=== PATIENT | male | born 1960 | race Caucasian/White ===

== ENCOUNTER 2024-12-21 22:59 | Inpatient (IN) ==
[2024-12-21 23:50] LABS: Appearance Urine Clear (Clear); Bilirubin Urine Negative (Negative); Blood Urine Negative (Negative); Color Urine Yellow; Glucose Urine UA Negative (Negative); Ketones Urine Negative (Negative); Leukocyte Esterase Urine Negative (Negative); Nitrite Urine Negative (Negative); Protein Urine Negative (Negative); Specific Gravity Urine 1.012 (1.000-1.030); Urobilinogen Urine Negative (Negative)
[2024-12-21 23:52] LABS: Basophils # (auto) 0.05 K/uL (0.00-0.20); Basophils % (auto) 0.2 %; Hematocrit (blood only) 42.5 % (42.0-52.0); Hemoglobin 15.2 g/dl (14.0-18.0); Immature Granulocytes # (auto) 0.13 K/uL (0.01-0.20); Immature Granulocytes % (auto) 0.6 %; Lymphocytes # (auto) 1.92 K/uL (1.20-3.40); Lymphocytes % (auto) 9.3 %; Mean Corpuscular Hemoglobin 32.1 pg (25.0-34.0); Mean Corpuscular Hgb Conc 35.8 g/dL (32.0-36.0); Mean Corpuscular Volume 89.7 fL (80.0-100.0); Mean Platelet Volume 9.2 fL (9.4-12.4); Monocytes # (auto) 1.25 K/uL (0.11-0.59); Neutrophils # (auto) 17.39 K/uL (1.40-6.50); Neutrophils % (auto) 83.9 %; Platelet Count 195 K/uL (130-400); RDW Coefficient of Variation 13.2 % (11.5-14.5); RDW Standard Deviation 43.8 fL (36.4-46.3); Red Blood Count 4.74 M/uL (4.70-6.10); White Blood Count 20.74 K/ul (4.8-10.8)
[2024-12-22] LABS: Albumin Globulin Ratio 1.8 (0.9-2); Albumin Level 4.3 gm/dl (3.4-5.0); BUN Creatinine Ratio 19.8 (10-20); Calcium 9.2 mg/dl (8.6-10.3); Creatinine Clr Calc Pharmacy 109.5 ml/min; Globulin 2.4 gm/dl (2.5-4.0); Potassium 3.5 mmol/L (3.5-5.1); Total Protein 6.7 gm/dl (6.0-8.3)
[2024-12-22 00:22] LABS: D Dimer 2050 ug/L FEU (0-500)
[2024-12-22 00:37] LABS: Adenovirus PCR Not Detected (NotDetected); Bordetella parapertussis PCR Not Detected (NotDetected); Bordetella pertussis PCR Not Detected (NotDetected); Chlamydia pneumoniae PCR Not Detected (NotDetected); Coronavirus 229E PCR Not Detected (NotDetected); Coronavirus CoV-2 (COVID19)PCR Not Detected (NotDetected); Coronavirus HKU1 PCR Not Detected (NotDetected); Coronavirus NL63 PCR Not Detected (NotDetected); Coronavirus OC43PCR Not Detected (NotDetected); Human Metapneumovirus PCR Not Detected (NotDetected); Influenza A PCR Not Detected (NotDetected); Influenza B PCR Not Detected (NotDetected); Mycoplasma pneumoniae PCR Not Detected (NotDetected); Parainfluenza Virus 1 PCR Not Detected (NotDetected); Parainfluenza Virus 2 PCR Not Detected (NotDetected); Parainfluenza Virus 3 PCR Not Detected (NotDetected); Parainfluenza Virus 4 PCR Not Detected (NotDetected); Respiratory Syncytial VirusPCR Not Detected (NotDetected); Rhinovirus/Enterovirus PCR Not Detected (NotDetected)
[2024-12-22] MEDS: OPTIRAY 320 125ml IV ONE (00:48)
[2024-12-22 00:51] LABS: Magnesium 1.7 mg/dl (1.7-2.4)
--- NOTE | 2024-12-22 00:58 | Emergency Department Note ---
Impression & Plan Bilateral pneumonia, Hypoxia Admit to the [facility] ED Provider Note NAME: ISAAC LOCO AGE: 64 SEX: Male INFORMANT: Patient ED PROVIDER(S): Mell Chavez DO CHIEF COMPLAINT: Shortness of breath and chills PLAN: Disposition: admit to the [facility] MEDICAL DECISION MAKING: This is a 64-year-old male patient who presents to the emergency department with sudden onset of shortness of breath and chills around 5:30 PM this evening. He then began to develop diaphoresis and his noted that he was flushed. Patient states that he had significant shortness of breath walking up his stairs in his home which was concerning for him. Patient is a smoker. He has had intermittent coughing. He did travel by car home from [place] last week. Laboratory studies revealed negative upper respiratory bio fire testing. upon my evaluation of the patient, his O2 saturations on room air were in the 80s. He was placed on supplemental oxygen by nasal cannula. There was significant leukocytosis with a white count of 20.7. Troponin was negative. H&H was normal. D-dimer was 2050. Lactate and procalcitonin were negative. BNP was normal. Glucose was 123. Urinalysis was normal. Portable chest x-ray showed evidence of a bilateral pneumonia. Patient went for CTA to rule out PE. This was negative for clot but confirmed bilateral pneumonia. Patient Had been treated for IV cefepime out of concern for possible sepsis upon presentation. Patient remained hemodynamically stable. I discussed the case with the [facility] they will evaluate for further inpatient care. Care/management discussed with: career services manager and [facility] Triage Nursing notes: reviewed and agree with them. Vital Signs: reviewed and remarkable for hypoxia Additional History obtained from: patient's is at the bedside Chronic Medical/Social Conditions affecting care: tobacco abuse Differential Diagnosis: PE, pneumonia, sepsis, bronchitis Diagnostics, independently interpreted by me: ECG: Normal sinus rhythm at a rate of [address] segment elevation or signs of ischemia. There is no ectopy. QTc was 472 ms. Cardiac Monitoring: normal sinus rhythm at a rate of 98 Imaging studies: portable chest x-ray: Bilateral lower lobe opacities concerning for pneumonia as per my independent interpretation CTA chest: As per [facility] HPI: 64 year old Male arrives for evaluation of shortness of breath and chills that began suddenly around 5:30 PM this evening. Patient went on to develop significant diaphoresis and became flushed according to the patient's . Patient states that he became increasingly short of breath and was quite concerned when he attempted to walk up his stairs in his home and this was quite difficult for him. PAST MEDICAL HISTORY: See Below, SOCIAL HISTORY: Patient lives with his , he states that he has smoked cigarettes since the age of 12, They just returned from [place] where they spend the winter months HOME MEDICATIONS: See Below ALLERGIES: none VITALS: See Below PHYSICAL EXAMINATION: HEENT: Head - normocephalic and atraumatic. Pupils are equal, round, and reactive to light. Extraocular eye muscles are intact, and sclera are anicteric. Nose - moist nasal mucosa without discharge. Mouth - moist buccal mucosa. Oropharynx is nonerythematous and there is no tonsillar exudate or edema noted. Neck: Supple; no cervical of adenopathy or nuchal rigidity Heart: Regular rate and rhythm. There is a normal S1 and S2 with no murmurs, clicks, or gallops appreciated. Lungs: diminished breath sounds at both lung bases but no wheezing. Abdomen: Soft, completely nontender, nondistended, with good bowel sounds. There are no palpable pulsatile masses or hepatosplenomegaly. There is no guarding, rigidity, or rebound noted. Extremities: No evidence of cyanosis, clubbing, or edema. There are easily palpable peripheral pulses. Skin: warm and dry with good turgor and no rashes. Emergency Department treatment: patient monitor, supplemental oxygen by nasal cannula, IV cefepime Emergency Department course: The patient was evaluated in room B-8. A complete history and physical was performed. An order was placed for continuous cardiac monitoring. The patient was in a normal sinus rhythm at a rate of 98. O2 saturations were noted to be around 88% on room air. He was placed on 2 L of oxygen by nasal cannula which brought O2 saturations up to 93%. A septic protocol was performed as the patient describes having chills and sweats along with shortness of breath. A portable chest x-ray was performed. This was concerning for bilateral pneumonia. The patient was given a dose of IV cefepime. D-dimer was significantly positive. The patient went on to have a CT scan of the chest to rule out PE. This was negative for blood clot but remain concerning for pneumonia. I discussed the case with the [facility] Hospitalist and they will evaluate for further inpatient care as the patient remains hypoxic. I have personally spent greater than 30 minutes of critical care time in the direct management of this patient. This includes bedside care, interpretation of diagnostic studies, and testing, discussion with consultants, patient, and family members, and other required patient management activities. This 30 minutes is in excess of all separately billable procedures. Past Med/Surg History Problem List (Updated 12/23/24 @ 00:30 by Mell Chavez DO) Hypoxia (Acute) Bilateral pneumonia (Acute) Nicotine dependence Hypertension Prediabetes Acute hypoxic respiratory failure Atypical pneumonia Severe sepsis Social History Smoking Status: Current every day smoker Tobacco Type: Cigarettes Cigarettes Per Day: 1 pack; Do You Dip or Chew Tobacco: No; Hx Alcohol Use: Yes Hx Substance Use: No Preferred Language: Romanian Communication Ability: Effective Manager Mechanical Maintenance Required: No Beliefs That Will Affect Care: None Current Living Situation: Spouse Other Information That Helps Us Care for You: No Feels Safe at Home: Yes Safety Concerns: Feels Safe At This Time Allergies Allergies Allergy/AdvReac Type Severity Reaction Status Date / Time No Known Allergies Allergy Verified 12/22/24 01:10 Home Meds Home Medications Medication Instructions Recorded Confirmed Calcium Citrate + D 200 - 250 mg PO BID 12/22/24 12/22/24 Prostate Health 1 cap PO DAILY 12/22/24 12/22/24 Vitamin C 1,000 mg PO DAILY 12/22/24 12/22/24 Voltaren 2 g topical BID 12/22/24 12/22/24 aspirin 81 mg PO DAILY 12/22/24 12/22/24 atorvastatin 80 mg tablet 80 mg DAILY 12/22/24 12/22/24 celecoxib 200 mg capsule 200 mg PO DAILY 12/22/24 12/22/24 ginseng 100 mg PO BID 12/22/24 12/22/24 metoprolol succinate 25 mg 12.5 mg PO DAILY 12/22/24 12/22/24 tablet,extended release 24 hr omeprazole 20 mg PO BID 12/22/24 12/22/24 sildenafil 100 mg PO NOW 12/22/24 12/22/24 Results & Data (ED) Vital Signs Vital Signs - 24 hr 12/22/24 02:00 Pulse Rate 72 Respiratory Rate 20 Blood Pressure 112/65 Blood Pressure Mean 78 Pulse Oximetry 94 Oxygen Delivery Method Nasal Cannula Oxygen Flow Rate 2 Laboratory Data 12/22/24 03:05 12/22/24 03:05 Lab Results 12/21/24 12/21/24 12/21/24 Range/Units 23:08 23:09 23:12 WBC 20.74 H (4.8-10.8) K/ul RBC 4.74 (4.70-6.10) M/uL Hgb 15.2 (14.0-18.0) g/dl Hct 42.5 (42.0-52.0) % MCV 89.7 (80.0-100.0) fL MCH 32.1 (25.0-34.0) pg MCHC 35.8 (32.0-36.0) g/dL RDW Std Deviation 43.8 (36.4-46.3) fL RDW Coeff of Park 13.2 (11.5-14.5) % Plt Count 195 (130-400) K/uL MPV 9.2 L (9.4-12.4) fL Immature Gran % (Auto) 0.6 % Neut % (Auto) 83.9 % Lymph % (Auto) 9.3 % Frio % (Auto) 6.0 % Eos % (Auto) 0.0 % Baso % (Auto) 0.2 % Neut # (Auto) 17.39 H (1.40-6.50) K/uL Lymph # (Auto) 1.92 (1.20-3.40) K/uL Frio # (Auto) 1.25 H (0.11-0.59) K/uL Eos # (Auto) 0.00 (0.00-0.50) K/uL Baso # (Auto) 0.05 (0.00-0.20) K/uL Immature Gran # (Auto) 0.13 (0.01-0.20) K/uL D-Dimer 2050 H* (0-500) ug/L FEU Sodium 140 (136-145) mmol/L Potassium 3.5 (3.5-5.1) mmol/L Chloride 106 (98-107) mmol/L Carbon Dioxide 25 (21-32) mmol/L Anion Gap 9 (3-11) BUN 16 (6-23) mg/dl Creatinine 0.81 (0.6-1.4) mg/dl Est Cr Clr Drug Dosing 109.5 ml/min eGFR 97.85 BUN/Creatinine Ratio 19.8 (10-20) Glucose 123 H (70-99(Fasting)) mg/dl Lactate (0.4-2.0) mmol/L Calcium 9.2 (8.6-10.3) mg/dl Magnesium 1.7 (1.7-2.4) mg/dl Total Bilirubin 1.0 (0.2-1.0) mg/dl AST 24 (13-39) U/L ALT 21 (7-52) U/L Alkaline Phosphatase 69 (34-104) U/L Troponin I High Sens 6.4 (0-20) pg/ml B-Natriuretic Peptide (0-100) pg/ml Total Protein 6.7 (6.0-8.3) gm/dl Albumin 4.3 (3.4-5.0) gm/dl Globulin 2.4 L (2.5-4.0) gm/dl Albumin/Globulin Ratio 1.8 (0.9-2) Procalcitonin 0.04 (0-0.5) ng/ml Urine Color Yellow Urine Appearance Clear (Clear) Urine pH 7.0 (4.5-7.5) Ur Specific Wilson 1.012 (1.000-1.030) Urine Protein Negative (Negative) Urine Glucose (UA) Negative (Negative) Urine Ketones Negative (Negative) Urine Blood Negative (Negative) Urine Nitrite Negative (Negative) Urine Bilirubin Negative (Negative) Urine Urobilinogen Negative (Negative) Ur Leukocyte Esterase Negative (Negative) Adenovirus (PCR) Not Detected (NotDetected) B. pertussis DNA (PCR) Not Detected (NotDetected) B.parapertussis DNA PCR Not Detected (NotDetected) C. pneumoniae DNA (PCR) Not Detected (NotDetected) Coronavirus OC43 (PCR) Not Detected (NotDetected) Coronavirus HKU1 (PCR) Not Detected (NotDetected) Coronavirus 229E (PCR) Not Detected (NotDetected) SARS-CoV-2 (PCR) Not Detected (NotDetected) Coronavirus NL63 (PCR) Not Detected (NotDetected) Human Metapneumovir PCR Not Detected (NotDetected) Influenza Type A (PCR) Not Detected (NotDetected) Influenza Type B (PCR) Not Detected (NotDetected) M. pneumoniae (PCR) Not Detected (NotDetected) Parainfluenza 1 (PCR) Not Detected (NotDetected) Parainfluenza 2 (PCR) Not Detected (NotDetected) Parainfluenza 3 (PCR) Not Detected (NotDetected) Parainfluenza 4 (PCR) Not Detected (NotDetected) RSV (PCR) Not Detected (NotDetected) Entero/Rhino (PCR) Not Detected (NotDetected) 12/22/24 Range/Units 00:30 WBC (4.8-10.8) K/ul RBC (4.70-6.10) M/uL Hgb (14.0-18.0) g/dl Hct (42.0-52.0) % MCV (80.0-100.0) fL MCH (25.0-34.0) pg MCHC (32.0-36.0) g/dL RDW Std Deviation (36.4-46.3) fL RDW Coeff of Park (11.5-14.5) % Plt Count (130-400) K/uL MPV (9.4-12.4) fL Immature Gran % (Auto) % Neut % (Auto) % Lymph % (Auto) % Frio % (Auto) % Eos % (Auto) % Baso % (Auto) % Neut # (Auto) (1.40-6.50) K/uL Lymph # (Auto) (1.20-3.40) K/uL Frio # (Auto) (0.11-0.59) K/uL Eos # (Auto) (0.00-0.50) K/uL Baso # (Auto) (0.00-0.20) K/uL Immature Gran # (Auto) (0.01-0.20) K/uL D-Dimer (0-500) ug/L FEU Sodium (136-145) mmol/L Potassium (3.5-5.1) mmol/L Chloride (98-107) mmol/L Carbon Dioxide (21-32) mmol/L Anion Gap (3-11) BUN (6-23) mg/dl Creatinine (0.6-1.4) mg/dl Est Cr Clr Drug Dosing ml/min eGFR BUN/Creatinine Ratio (10-20) Glucose (70-99(Fasting)) mg/dl Lactate 1.6 (0.4-2.0) mmol/L Calcium (8.6-10.3) mg/dl Magnesium (1.7-2.4) mg/dl Total Bilirubin (0.2-1.0) mg/dl AST (13-39) U/L ALT (7-52) U/L Alkaline Phosphatase (34-104) U/L Troponin I High Sens (0-20) pg/ml B-Natriuretic Peptide 30 (0-100) pg/ml Total Protein (6.0-8.3) gm/dl Albumin (3.4-5.0) gm/dl Globulin (2.5-4.0) gm/dl Albumin/Globulin Ratio (0.9-2) Procalcitonin (0-0.5) ng/ml Urine Color Urine Appearance (Clear) Urine pH (4.5-7.5) Ur Specific Wilson (1.000-1.030) Urine Protein (Negative) Urine Glucose (UA) (Negative) Urine Ketones (Negative) Urine Blood (Negative) Urine Nitrite (Negative) Urine Bilirubin (Negative) Urine Urobilinogen (Negative) Ur Leukocyte Esterase (Negative) Adenovirus (PCR) (NotDetected) B. pertussis DNA (PCR) (NotDetected) B.parapertussis DNA PCR (NotDetected) C. pneumoniae DNA (PCR) (NotDetected) Coronavirus OC43 (PCR) (NotDetected) Coronavirus HKU1 (PCR) (NotDetected) Coronavirus 229E (PCR) (NotDetected) SARS-CoV-2 (PCR) (NotDetected) Coronavirus NL63 (PCR) (NotDetected) Human Metapneumovir PCR (NotDetected) Influenza Type A (PCR) (NotDetected) Influenza Type B (PCR) (NotDetected) M. pneumoniae (PCR) (NotDetected) Parainfluenza 1 (PCR) (NotDetected) Parainfluenza 2 (PCR) (NotDetected) Parainfluenza 3 (PCR) (NotDetected) Parainfluenza 4 (PCR) (NotDetected) RSV (PCR) (NotDetected) Entero/Rhino (PCR) (NotDetected) Administered Medications Albuterol (Albut/Ipratrop 3mg/0.5mg Neb 3 Ml Vial) 3 ml NEB QIDR [facility]; Protocol Stop: 01/21/25 18:59 Last Admin: 12/22/24 19:55 Dose: 3 ml Documented By: [id number] Ascorbic Acid (Ascorbic Acid 500 Mg Tab) 1,000 mg PO DAILY NAKITA Stop: 01/21/25 08:59 Last Admin: 12/22/24 08:16 Dose: 1,000 mg Documented By: JANIE Atorvastatin Calcium (Atorvastatin 40 Mg Tab) 80 mg PO DAILY NAKITA Stop: 01/21/25 08:59 Last Admin: 12/22/24 08:17 Dose: 80 mg Documented By: JANIE Diclofenac Sodium (Diclofenac Sod 1% Gel 100 Gm Tube) 2 gm EXT BID NAKITA Stop: 01/21/25 08:59 Last Admin: 12/22/24 20:25 Dose: Not Given Documented By: Admin: 12/22/24 08:17 Dose: Not Given Documented By: JANIE Doxycycline Hyclate (Doxycycline Hyclate 100 Mg Cap) 100 mg PO BID [facility] Stop: 12/27/24 20:59 Last Admin: 12/22/24 20:32 Dose: 100 mg Documented By: MAYUR Enoxaparin Sodium (Enoxaparin Inj 40 Mg/0.4 Ml Syr) 40 mg SQ QAM [facility] Stop: 01/21/25 08:59 Last Admin: 12/22/24 08:17 Dose: Not Given Documented By: JANIE Guaifenesin (Guaifenesin 600 Mg Tabcr) 1,200 mg PO Q12 NAKITA Stop: 01/21/25 20:59 Last Admin: 12/22/24 20:32 Dose: 1,200 mg Documented By: MAYUR Ceftriaxone Sodium (Rocephin) 2,000 mg in 50 mls @ 100 mls/hr IV Q24H NAKITA Stop: 12/27/24 08:59 Last Infusion: 12/22/24 09:44 Dose: Infused Documented By: Admin: 12/22/24 08:16 Dose: 100 mls/hr Documented By: JANIE Insulin Aspart (Insulin Aspart Per Unit Charge) 0 units SC ACHS NAKITA Stop: 01/21/25 04:08 Last Admin: 12/22/24 21:13 Dose: Not Given Documented By: MAYUR Co-signed By: ADNREW Admin: 12/22/24 18:05 Dose: Not Given Documented By: Admin: 12/22/24 12:30 Dose: Not Given Documented By: ENRIQUE Co-signed By: SMITA Admin: 12/22/24 05:12 Dose: Not Given Documented By: MARYAM Nicotine (Nicotine 14 Mg/24 Hr Patch) 1 patch TD QAM NAKITA Stop: 01/21/25 12:44 Last Admin: 12/22/24 18:05 Dose: Not Given Documented By: FRANCO Pantoprazole Sodium (Pantoprazole 40 Mg Tab) 40 mg PO BID [facility] Stop: 01/21/25 08:59 Last Admin: 12/22/24 20:32 Dose: 40 mg Documented By: Admin: 12/22/24 08:17 Dose: 40 mg Documented By: JANIE Discontinued Medications Albuterol (Albut/Ipratrop 3mg/0.5mg Neb 3 Ml Vial) 3 ml NEB QID [facility]AKITA; Protocol Stop: 01/21/25 12:59 Last Admin: 12/22/24 13:18 Dose: 3 ml Documented By: TRACEE Guaifenesin (Guaifenesin 600 Mg Tabcr) 600 mg PO ONE STA Stop: 12/22/24 03:30 Last Admin: 12/22/24 03:49 Dose: 600 mg Documented By: MARYAM Cefepime HCl (Maxipime 2000mg) 2,000 mg in 20 mls @ 5 mls/min IV NOW STA; Protocol Stop: 12/22/24 01:16 Last Admin: 12/22/24 01:21 Dose: 5 mls/min Documented By: QGV Magnesium Sulfate/Dextrose (Magnesium Sulfate / D5w) 1 gm in 100 mls @ 50 mls/hr IV ONE STA Stop: 12/22/24 04:18 Last Infusion: 12/22/24 06:10 Dose: Infused Documented By: Admin: 12/22/24 02:35 Dose: 50 mls/hr Documented By: QGV Potassium Chloride/Sodium Chloride (Normal Saline W/20 Meq Kcl) 20 meq in 1,000 mls @ 100 mls/hr IV .Q10H STA Stop: 12/22/24 12:18 Last Infusion: 12/22/24 13:45 Dose: Infused Documented By: Admin: 12/22/24 03:44 Dose: 100 mls/hr Documented By: MARYAM Doxycycline Hyclate 100 mg/ (Dextrose) 100 mls @ 50 mls/hr IV NOW STA Stop: 12/22/24 05:00 Last Infusion: 12/22/24 06:20 Dose: Infused Documented By: Admin: 12/22/24 04:18 Dose: 50 mls/hr Documented By: MARYAM Ioversol (Optiray 320 125ml) 89 ml IV ONCE ONE Stop: 12/22/24 00:49 Last Admin: 12/22/24 00:48 Dose: 89 ml Documented By: BELINDAW Discharge Plan Visit Data Chief Complaint: Shortness of Breath/Dyspnea Stated Complaint: SOB, Flu Like Symptoms ED Provider: Mell Chavez Discharge Problem: Bilateral pneumonia, Hypoxia Patient Disposition: Admitted As Inpatient Condition: Critical Discharge Instructions Interventions: ED Discharge Assessment Last Done: 12/22/24 04:09
[2024-12-22 00:59] LABS: Troponin I High Sensitivity 6.4 pg/ml (0-20)
[2024-12-22] MEDS: CEFEPIME 2000MG 2,000 MG/20 ML SYR IV STA (01:21)
--- NOTE | 2024-12-22 01:46 | CT Scan Report ---
EXAM: CT angio chest PE protocol CLINICAL HISTORY: PE TECHNIQUE: Contiguous axial images were obtained from the neck base through the upper abdomen following intravenous administration of iodinated contrast material. Angiographic images were processed, 3D MIP images were acquired for interpretation. If IV contrast material had not been administered, the likelihood of detecting abnormalities relevant to the patient's condition would have been substantially decreased. Coronal and sagittal 3-D MIPs were likewise performed and indicated to increase the sensitivity of detectin diffuse clinically relevant pathology. CT scan was performed according to ALARA (as low as reasonable achievable). COMPARISON: .. None. FINDINGS: Adequate contrast bolus without evidence of pulmonary embolism. The central airways are patent. Few areas of groung glassgin and subtle interlobular septla thickening noted in both lung bases The lungs are otherwise clear. No pleural effusion. The heart, aorta, and pulmonary arteries are of normal size and configuration. There are no appreciable coronary artery and aortic atherosclerotic calcifications. No pericardial effusion is identified. The thyroid is unremarkable. No mediastinal, hilar, or axillary lymphadenopathy is noted. No suspicious lytic or sclerotic osseous lesions are identified. IMPRESSION: No evidence of pulmonary embolism Few areas of groung glassgin and subtle interlobular septla thickening noted in both lung bases: could represent aspiration related changes or early interstitial lung disease. Advised clinical correlation. Electronically signed by Fidencio Carr 12-22-2024 01:46 AM
--- NOTE | 2024-12-22 02:16 | History & Physical Report ---
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 Lovenox subcu Full code Patient requesting updates providers. Ms. Abdiaziz Prado, contact #[phone]. Text document was generated using [employer] voice recognition software. It may contain grammatical or spelling errors. Kindly contact undersigned for clarification of any documentation item in ques tion. History of Present Illness Chief Complaint: Worsening SOB Primary Care Provider: Jesus Kingston MD History obtained from patient, family, and records. Medical history significant for nonocclusive CAD, hypertension, hyperlipidemia, Little's esophagus, DM2 diet-controlled, ongoing tobacco abuse. Few days history of progressive SOB worse on exertion associated with dry cough symptoms. Not sure about sick contacts. Outpatient doctor/dentist appointments. Denies aspiration. Denies chest pain, leg swelling or fluid retention. EMS called the patient's home. Neb treatment given en route to ER. Lowest O2 sats of 80s documented at the ER. Cefepime administered at the ER. Medical History as above Surgical History : None Family History : Heart disease Personal/Social history : 1 pack daily, occasional EtOH intake, retired Allergies Allergy/AdvReac Type Severity Reaction Status Date / Time No Known Allergies Allergy Verified 12/22/24 01:10 Home Medications Medication Instructions Recorded Confirmed Type Calcium Citrate + D 200 - 250 mg PO BID 12/22/24 12/22/24 History Prostate Health 1 cap PO DAILY 12/22/24 12/22/24 History Vitamin C 1,000 mg PO DAILY 12/22/24 12/22/24 History Voltaren 2 g topical BID 12/22/24 12/22/24 History aspirin 81 mg PO DAILY 12/22/24 12/22/24 History atorvastatin 80 mg tablet 80 mg DAILY 12/22/24 12/22/24 History celecoxib 200 mg capsule 200 mg PO DAILY 12/22/24 12/22/24 History ginseng 100 mg PO BID 12/22/24 12/22/24 History metoprolol succinate 25 mg 12.5 mg PO DAILY 12/22/24 12/22/24 History tablet,extended release 24 hr omeprazole 20 mg PO BID 12/22/24 12/22/24 History sildenafil 100 mg PO NOW 12/22/24 12/22/24 History Past Med/Surg History Problem List (Updated 12/22/24 @ 04:15 by Joe Zelaya MD) Severe sepsis Social History Smoking Status: Current every day smoker Preferred Language: Turkmen Feels Safe at Home: Yes Review of Systems Review of Systems: As per HPI, all other systems reviewed and negative Physical Exam Physical Exam: GENERAL: Comfortable, slightly anxious, pleasant, obese, no respiratory distress SKIN: [place], warm HEENT: Alopecia, [place] palpebral conjunctivae, no ptosis, dry buccal mucosa, nasal cannula in place NECK : Supple, no tenderness CHEST : Decreased breath sounds, no tenderness HEART : RRR, no obvious murmurs ABDOMEN: Some distention, nontender EXTREMITIES : No LE swelling/tenderness, palpable pulses, no other conspicuous deformities noted NEUROLOGIC : Coherent, no facial asymmetry, no other gross focality Results & Data Results & Data Vital Signs (Past 12 Hours) Vital Signs Temp Pulse Resp BP Pulse Ox O2 Del Method 12/21/24 23:36 89 L Room Air, Nasal Cannula 12/21/24 23:11 37 C 99 H 22 130/78 92 Room Air 12/21/24 23:11 Room Air 12/21/24 23:04 95 H Laboratory Results Laboratory Results WBC 20.74 K/ul (4.8-10.8) H 12/21/24 23:08 RBC 4.74 M/uL (4.70-6.10) 12/21/24 23:08 Hgb 15.2 g/dl (14.0-18.0) 12/21/24 23:08 Hct 42.5 % (42.0-52.0) 12/21/24 23:08 MCV 89.7 fL (80.0-100.0) 12/21/24 23:08 MCH 32.1 pg (25.0-34.0) 12/21/24 23:08 MCHC 35.8 g/dL (32.0-36.0) 12/21/24 23:08 RDW Std Deviation 43.8 fL (36.4-46.3) 12/21/24 23:08 RDW Coeff of [place] 13.2 % (11.5-14.5) 12/21/24 23:08 Plt Count 195 K/uL (130-400) 12/21/24 23:08 MPV 9.2 fL (9.4-12.4) L 12/21/24 23:08 Immature Gran % (Auto) 0.6 % 12/21/24 23:08 Neut % (Auto) 83.9 % 12/21/24 23:08 Lymph % (Auto) 9.3 % 12/21/24 23:08 [place] % (Auto) 6.0 % 12/21/24 23:08 Eos % (Auto) 0.0 % 12/21/24 23:08 Baso % (Auto) 0.2 % 12/21/24 23:08 Neut # (Auto) 17.39 K/uL (1.40-6.50) H 12/21/24 23:08 Lymph # (Auto) 1.92 K/uL (1.20-3.40) 12/21/24 23:08 [place] # (Auto) 1.25 K/uL (0.11-0.59) H 12/21/24 23:08 Eos # (Auto) 0.00 K/uL (0.00-0.50) 12/21/24 23:08 Baso # (Auto) 0.05 K/uL (0.00-0.20) 12/21/24 23:08 Immature Gran # (Auto) 0.13 K/uL (0.01-0.20) 12/21/24 23:08 D-Dimer 2050 ug/L FEU (0-500) H* 12/21/24 23:08 Sodium 140 mmol/L (136-145) 12/21/24 23:08 Potassium 3.5 mmol/L (3.5-5.1) 12/21/24 23:08 Chloride 106 mmol/L (98-107) 12/21/24 23:08 Carbon Dioxide 25 mmol/L (21-32) 12/21/24 23:08 Anion Gap 9 (3-11) 12/21/24 23:08 BUN 16 mg/dl (6-23) 12/21/24 23:08 Creatinine 0.81 mg/dl (0.6-1.4) 12/21/24 23:08 Est Cr Clr Drug Dosing 109.5 ml/min 12/21/24 23:08 eGFR 97.85 12/21/24 23:08 BUN/Creatinine Ratio 19.8 (10-20) 12/21/24 23:08 Glucose 123 mg/dl (70-99(Fasting)) H 12/21/24 23:08 Lactate 1.6 mmol/L (0.4-2.0) 12/22/24 00:30 Calcium 9.2 mg/dl (8.6-10.3) 12/21/24 23:08 Magnesium 1.7 mg/dl (1.7-2.4) 12/21/24 23:08 Total Bilirubin 1.0 mg/dl (0.2-1.0) 12/21/24 23:08 AST 24 U/L (13-39) 12/21/24 23:08 ALT 21 U/L (7-52) 12/21/24 23:08 Alkaline Phosphatase 69 U/L (34-104) 12/21/24 23:08 Troponin I High Sens 6.4 pg/ml (0-20) 12/21/24 23:08 B-Natriuretic Peptide 30 pg/ml (0-100) 12/22/24 00:30 Total Protein 6.7 gm/dl (6.0-8.3) 12/21/24 23:08 Albumin 4.3 gm/dl (3.4-5.0) 12/21/24 23:08 Globulin 2.4 gm/dl (2.5-4.0) L 12/21/24 23:08 Albumin/Globulin Ratio 1.8 (0.9-2) 12/21/24 23:08 Procalcitonin 0.04 ng/ml (0-0.5) 12/21/24 23:08 Urine Color Yellow 12/21/24 23:12 Urine Appearance Clear (Clear) 12/21/24 23:12 Urine pH 7.0 (4.5-7.5) 12/21/24 23:12 Ur Specific [place] 1.012 (1.000-1.030) 12/21/24 23:12 Urine Protein Negative (Negative) 12/21/24 23:12 Urine Glucose (UA) Negative (Negative) 12/21/24 23:12 Urine Ketones Negative (Negative) 12/21/24 23:12 Urine Blood Negative (Negative) 12/21/24 23:12 Urine Nitrite Negative (Negative) 12/21/24 23:12 Urine Bilirubin Negative (Negative) 12/21/24 23:12 Urine Urobilinogen Negative (Negative) 12/21/24 23:12 Ur Leukocyte Esterase Negative (Negative) 12/21/24 23:12 Adenovirus (PCR) Not Detected (NotDetected) 12/21/24 23:09 B. pertussis DNA (PCR) Not Detected (NotDetected) 12/21/24 23:09 B.parapertussis DNA PCR Not Detected (NotDetected) 12/21/24 23:09 C. pneumoniae DNA (PCR) Not Detected (NotDetected) 12/21/24 23:09 Coronavirus OC43 (PCR) Not Detected (NotDetected) 12/21/24 23:09 Coronavirus HKU1 (PCR) Not Detected (NotDetected) 12/21/24 23:09 Coronavirus 229E (PCR) Not Detected (NotDetected) 12/21/24 23:09 SARS-CoV-2 (PCR) Not Detected (NotDetected) 12/21/24 23:09 Coronavirus NL63 (PCR) Not Detected (NotDetected) 12/21/24 23:09 Human Metapneumovir PCR Not Detected (NotDetected) 12/21/24 23:09 Influenza Type A (PCR) Not Detected (NotDetected) 12/21/24 23:09 Influenza Type B (PCR) Not Detected (NotDetected) 12/21/24 23:09 M. pneumoniae (PCR) Not Detected (NotDetected) 12/21/24 23:09 Parainfluenza 1 (PCR) Not Detected (NotDetected) 12/21/24 23:09 Parainfluenza 2 (PCR) Not Detected (NotDetected) 12/21/24 23:09 Parainfluenza 3 (PCR) Not Detected (NotDetected) 12/21/24 23:09 Parainfluenza 4 (PCR) Not Detected (NotDetected) 12/21/24 23:09 RSV (PCR) Not Detected (NotDetected) 12/21/24 23:09 Entero/Rhino (PCR) Not Detected (NotDetected) 12/21/24 23:09 Impressions Chest CTA 12/22/24 00:28 EXAM: CT angio chest PE protocol CLINICAL HISTORY: PE TECHNIQUE: Contiguous axial images were obtained from the neck base through the upper abdomen following intravenous administration of iodinated contrast material. Angiographic images were processed, 3D MIP images were acquired for interpretation. If IV contrast material had not been administered, the likelihood of detecting abnormalities relevant to the patient's condition would have been substantially decreased. Coronal and sagittal 3-D MIPs were likewise performed and indicated to increase the sensitivity of detectin diffuse clinically relevant pathology. CT scan was performed according to ALARA (as low as reasonable achievable). COMPARISON: .. None. FINDINGS: Adequate contrast bolus without evidence of pulmonary embolism. The central airways are patent. Few areas of groung glassgin and subtle interlobular septla thickening noted in both lung bases The lungs are otherwise clear. No pleural effusion. The heart, aorta, and pulmonary arteries are of normal size and configuration. There are no appreciable coronary artery and aortic atherosclerotic calcifications. No pericardial effusion is identified. The thyroid is unremarkable. No mediastinal, hilar, or axillary lymphadenopathy is noted. No suspicious lytic or sclerotic osseous lesions are identified. IMPRESSION: No evidence of pulmonary embolism Few areas of groung glassgin and subtle interlobular septla thickening noted in both lung bases: could represent aspiration related changes or early interstitial lung disease. Advised clinical correlation. Electronically signed by Fidencio Carr 12-22-2024 01:46 AM Diagnostic Findings EKG as per my interpretation :Rate 95, NSR, RAD, incomplete RBBB, no ischemia
[2024-12-22] MEDS: MAGNESIUM SULFATE / D5W 1 GM/100 ML BAG IV STA (02:35)
[2024-12-22] MEDS ORDERED: BENZONATATE 100 MG CAPSULE PO PRN ×2 (03:02→12:37)
[2024-12-22] MEDS ORDERED: ALBUT/IPRATROP 3MG/0.5MG NEB 3 ML VIAL NEB PRN (03:02)
[2024-12-22] MEDS ORDERED: oxyCODONE HCL IR 5 MG TAB (IMMEDIATE RELEASE) PO PRN (03:03)
[2024-12-22] MEDS ORDERED: ACETAMINOPHEN 325 MG TAB PO PRN ×2 (03:03→12:37)
[2024-12-22] MEDS ORDERED: PROMETHAZINE 6.25 MG/50.25 ML BAG IV PRN (03:04)
[2024-12-22] MEDS ORDERED: LORazepam 0.5 MG TAB PO PRN (03:04)
[2024-12-22 03:24] LABS: Base Excess VBG 1.2 mEq/L; HCO3 VBG 26 mmol/L; Oxygen Saturation VBG 91.7 %; PCO2 VBG 41 mmHg (38-50); PO2 VBG 59 mmHg; pH VBG 7.41 (7.36-7.41)
[2024-12-22 03:28] LABS: Basophils # (auto) 0.05 K/uL (0.00-0.20); Basophils % (auto) 0.3 %; Eosinophils # (auto) 0.01 K/uL (0.00-0.50); Eosinophils % (auto) 0.1 %; Immature Granulocytes # (auto) 0.09 K/uL (0.01-0.20); Immature Granulocytes % (auto) 0.5 %; Lymphocytes # (auto) 2.15 K/uL (1.20-3.40); Lymphocytes % (auto) 11.3 %; Mean Corpuscular Hemoglobin 31.5 pg (25.0-34.0); Mean Corpuscular Volume 90.1 fL (80.0-100.0); Mean Platelet Volume 9.1 fL (9.4-12.4); Monocytes # (auto) 1.17 K/uL (0.11-0.59); Monocytes % (auto) 6.2 %; Neutrophils # (auto) 15.54 K/uL (1.40-6.50); Neutrophils % (auto) 81.6 %; Platelet Count 173 K/uL (130-400); RDW Coefficient of Variation 13.4 % (11.5-14.5); RDW Standard Deviation 43.8 fL (36.4-46.3); Red Blood Count 4.44 M/uL (4.70-6.10); White Blood Count 19.01 K/ul (4.8-10.8)
--- NOTE | 2024-12-22 03:28 | XRay Report ---
Exam(s): XR CXR 1 VIEW EXAM: XR Chest, 1 View CLINICAL HISTORY: Reason for exam: Dyspnea. TECHNIQUE: Frontal view of the chest. COMPARISON: No relevant prior studies available. FINDINGS: Lungs: Mild to moderate peribronchial thickening of the central and lower lobe bronchi with bilateral lower lobe patchy opacities. Pleural space: Unremarkable. No pneumothorax. Heart: Unremarkable. No cardiomegaly. Mediastinum: Unremarkable. Normal mediastinal contour. Bones/joints: Unremarkable. No acute fracture. IMPRESSION: Bronchitis with bilateral lower lobe infiltrates. Electronically signed by: Sara Mcgovern MD 12/22/24 03:27 AM
[2024-12-22 03:44] LABS: BUN Creatinine Ratio 20.8 (10-20); Calcium 8.7 mg/dl (8.6-10.3); Creatinine Clr Calc Pharmacy 123.2 ml/min; Potassium 3.7 mmol/L (3.5-5.1)
[2024-12-22] MEDS: NSS + 20MEQ KCL 20 MEQ/1,000 ML BAG IV STA (03:44)
[2024-12-22] MEDS: guaiFENesin 600 MG TABCR PO STA (03:49)
--- OUTSIDE RECORDS SUMMARY | 2024-12-22 04:02 | External Medical Summary | Summary of Care ---
Author Name Unknown Organization [facility] Address [address] [place] [address] Phone [phone] Care Team Providers Care Cane Furniture Maker Name Role Phone Jesus Kingston MD Primary Care Provider [phone] Reason for Visit * Reason Onset Date Comments Medication Refill 07/31/2024 Encounter Details Date Type Department Care Team (Late st Contact Info) Description 07/31/2024 Refill Family Practice [facility] [address] [place] [address] Jesus Kingston MD [address] [place] [address] Generalized osteoarthritis Allergies No known active allergiesdocumented as of this encounter (statuses as of 08/01/2024) Medications GINSENG 100 MG PO TABS 1 tablet twice daily Active CITRACAL PETITES/VITAMIN D 200-250 MG-UNIT PO TABS 1 tablet twice daily Active DEO MULTIVITAMIN FOR MEN PO TABS 1 tablet twice daily Active ASPIRIN 81 MG PO TABS 1 tablet daily Active CENTRUM SILVER ADULT 50+ PO TABS 1 daily Ac tive Ascorbic Acid (VITAMIN C) 1000 MG Tablet Take 1 Tablet by mouth in the morning. Active Misc Natural Products (GNP [employer] PROSTATE HEALTH) CAPS Take by mouth. Active Diclofenac Sodium 1 % External Gel (Voltaren) Apply 2 g topically to affected area in the morning and 2 g before bedtime. Apply to elbow. 100 g 3 3 Active Sildenafil Citrate 100 MG Oral Tablet (Viagra) Take 1 Tablet by mouth daily as needed for Erectile Dysfunction. 1-4 hours before intercourse, no more than 1 dose in 24 hours. 10 Tablet 5 4 Active Atorvastatin Calcium 80 MG Oral Tablet (Lipitor) Take 1 Tablet by mouth in the morning. 90 Tablet 1 4 Active Metoprolol Succinate ER 25 MG Oral Tablet Extended Release 24 Hour (toPROL XL) Take 0.5 Tablets by mouth in the morning. 45 Tablet 1 4 Active Omeprazole 20 MG Oral Capsule Delayed Release (PriLOSEC)Indicati ons:Little's esophagus without dysplasia Take 1 Capsule by mouth in the morning and 1 Capsule before bedtime. 180 Capsule 1 4 Active Celecoxib 200 MG Oral Capsule (CeleBREX)Indicati ons:Generalized osteoarthritis Take 1 Capsule by mouth in the morning. For pain. 90 Capsule 1 4 Active documented as of this encounter (statuses as of 08/01/2024) Active Problems Problem Noted Date Diagnosed Date SK (seborrheic keratosis) 05/16/2024 Organic erectile dysfunction 02/06/2023 Generalized osteoarthritis 02/06/2023 Obesity, Class I, BMI 30.0-34.9 (see actual BMI) 02/04/2023 Type 2 diabetes mellitus wit h hemoglobin A1c goal of less than 7.0% 05/10/2021 Dyslipidemia 12/31/2020 Tobacco use disorder 12/31/2020 Coronary artery disease invo lving [place] coronary artery without angina pectoris 10/14/2015 HTN, goal below 130/80 12/26/2012 Little esophagus 09/14/2012 Overview (10/14/2014): Needs endoscopy in 2018 documented as of this encounter (statuses as of 08/01/2024) Resolved Problems Problem Noted Date Diagnosed Date Resolved Date Prediabetes 10/03/2017 05/10/2021 Overview: Per Prediabetes protocol #1 Dyslipidemia, goal LDL below 70 04/11/2014 12/31/2020 CAD (coronary artery disease) 09/14/2012 10/14/2015 PURE HYPERCHOLESTEROLEM 01/26/200103/22 documented as of this encounter (statuses as of 08/01/2024) Immunizations Name Administration Dates Next Due Pneumococcal Conjugate Vacci ne, 20-valent ([id number]) 02/02/2022 Pneumococcal Polysaccharide PPV23 (Pneumovax) 05/10/2013 Seasonal Influenza Vac., MDV , IM, 0.5 mL (Fluzone) 05/02/2014,05/10/2013,07/05/2012 Seasonal Influenza, High Dos e, Trivalent, PF, IM (Fluzone HD) 05/06/2024 Seasonal Influenza, PF, 6 M & above, IM , (FluLaval or Fluzone) 05/18/2023,05/11/2021,05/20/2020,05/28,06/01/2018,06/16/2017 Seasonal Influenza, Quadriva lent, No Preserve, IM 06/23/2016,06/20/2015 TDAP (age 10 and older)(Boostrix) 07/05/2012 Zoster Vaccine Recombinant (Shingrix) 05/20/2020 ,01/27/2020 documented as of this encounter Social History Tobacco Use Types Packs/Day Years Used Date Smoking Tobacco: Every Day Cigarettes 1 40 Smokeless Tobacco: Never Comments:started age 13 Alcohol Use Standard Drinks/Week Comments Yes 0 (1 standard drink = 0.6 oz pur e alcohol) occ PHQ-2 Answer Date Recorded PHQ-2 Score 0 05/28/2019 Sex and Gender Information Value Date Recorded Sex Assigned at Not on file Legal Sex Male 5:22 AM EST Gender Identity Not on file Sexual Orientation Not on file documented as of this encounter Miscellaneous Notes * Telephone Encounter - Marla Lund [facility] - 08/01/2024 2:41 PM EST Refused Prescriptions: Disp Refills Celecoxib 200 MG Oral Capsule (CeleBREX) 90 Cap*1 Sig: Take 1 Capsule by mouth in the morning. For pain.Refused By: MARLA LUND for Refusal: Too soon documented in this encounter Plan of Treatment Upcoming Encounters Date Type Department Care Team (Late st Contact Info) Description 02/19/2025 8:00 AM EDT Office Visit [facility] [address] [place] [id number] Jesus Kingston MD [address] [place] [id number] Scheduled Procedures Name Priority Associated Diagnoses Date/Ti me COLONOSCOPY FLEXIBLE PROXIMAL DIAGNOSTIC Recall History of colon polyps ESOPHAGOGASTRODUODENOSCOPY ( EGD), FLEXIBLE, TRANSORAL, DIAGNOSTIC Recall Little esophagus Health Maintenance Due Date Last Done Comments DISCUSS TOBACCO CESSATION (REFER TO SMARTSET #0572) 1959 Diabetic Eye Exam 1977 Diabetic Foot Exam 1977 Cologuard 2004 Fecal Occult Blood Test 2004 Sigmoidoscopy 2004 Depression Screening 05/28/2020 05/28/2019 DTap/Tdap Vaccines (2 - Td or Tdap) 07/05/2022 07/05/2012 HbA1c 08/14/2024 02/13/2024, 12/19, 01/31/2022, Additional history exists Albumin/Creatinine Ratio 02/12/2025 024, 01/31/2022, 04/11/2014 GFR 02/12/2025 02/13/2024, 12/19, 01/31/2022, Additional history exists Little's Esophagus Surveilance 06/23/2025 06/23/2022, 06/23/2022, 01/18/2018, Additional history exists Colonoscopy 06/23/2027 06/23/2022, 10/2021, 01/18/2018, Additional history exists Colorectal Cancer Screening 06/23/2027 MENINGOCOCCAL (MENACTRA/MENVEO) Aged Out 07/12/2003, 01/25/1998, 08/31/1978 No longer eligible based on patient's age to complete this topic Lung Cancer Screening Completed 02/17/2020 Zoster Vaccines Completed 05/20/2020, 01/27/2020 Pneumococcal Vaccine: 65+ Years Completed 02/02/2022, 05/10/2013 RETIRED - COLONOSCOPY-EVERY 5 YRS AGES 18-100 Discontinued 06/23/2022, 06/23/2022, 01/18/2018, Additional history exists AAA Screening Completed 04/25/2024, 01/2009, 07/28/2003, Additional history exists Influenza Vaccine (FLU shot) Completed 05/06/2024, 05/18/2023, 05/11/2021, Additional history exists COVID-19 Vaccine Discontinued HPV (Gardasil) Vaccine Aged Out No lo nger eligible based on patient's age to complete this topic Hepatitis B Vaccine Aged Out No longe r eligible based on patient's age to complete this topic documented as of this encounter Medical Devices Not on filedocumented as of this encounter Visit Diagnoses Diagnosis Generalized osteoarthritis Generalized osteoarthrosis, unspecified site documented in this encounter Care Teams Cane Furniture Maker Relationship Specialty Start Date End Date Jesus Kingston MD [address] [place] [id number] PCP - General Family Medicine 12/31/20 documented as of this encounter
--- OUTSIDE RECORDS SUMMARY | 2024-12-22 04:02 | External Medical Summary | Summary of Care ---
Author Name Unknown Organization [facility] Address [address] [place] [address] Phone [phone] Care Team Providers Care Director Personal Name Role Phone Jesus Kingston MD Primary Care Provider [phone] Reason for Visit * Reason Onset Date Comments transfer of records 10/02/2024 Encounter Details Date Type Department Care Team (Late st Contact Info) Description 10/02/2024 Telephone Family Practice [facility] [address] [place] [address] Jesus Kingston MD [address] [facility] [place] [address] transfer of records Allergies No known active allergiesdocumented as of this encounter (statuses as of 10/03/2024) Medications GINSENG 100 MG PO TABS 1 [...] the morning. Active Misc Natural Products (GNP [employer] PROSTATE HEALTH) CAPS Take by mouth. Active [...] as of this encounter (statuses as of 10/03/2024) Active Problems Problem Noted Date Diagnosed Date SK (seborrheic keratosis) 05/16/2024 Organic erectile dysfunction 02/06/2023 Generalized osteoarthritis 02/06/2023 Obesity, Class I, BMI 30.0-34.9 (see actual BMI) 02/04/2023 Type 2 diabetes mellitus wit h hemoglobin A1c goal of less than 7.0% 05/10/2021 Dyslipidemia 12/31/2020 Tobacco use disorder 12/31/2020 Coronary artery disease invo lving [place] coronary artery without angina pectoris 10/14/2015 HTN, goal below 130/80 12/26/2012 Little esophagus 09/14/2012 Overview (10/14/2014): Needs endoscopy in 2018 documented as of this encounter (statuses as of 10/03/2024) Resolved Problems Problem Noted Date Diagnosed Date Resolved Date Prediabetes 10/03/2017 05/10/2021 Overview: Per Prediabetes protocol #1 Dyslipidemia, goal LDL below 70 04/11/2014 12/31/2020 CAD (coronary artery disease) 09/14/2012 10/14/2015 PURE HYPERCHOLESTEROLEM 01/26/200103/22 documented as of this encounter (statuses as of 10/03/2024) Immunizations Name Administration Dates Next Due Pneumococcal Conjugate Vacci ne, 20-valent ([id number]) 02/02/2022 Pneumococcal Polysaccharide PPV23 (Pneumovax) 05/10/2013 Seasonal [...] encounter Miscellaneous Notes * Telephone Encounter - Myrna Barroso OSA - 10/02/2024 2:50 PM EST Pt would like records sent to Anusha Saeed MD/Seda Wilson APRN for continued of care Thank you Forward to [facility] documented in this encounter Plan of Treatment Upcoming Encounters Date Type Department Care Team (Late st Contact Info) Description 02/19/2025 8:00 AM EDT Office Visit Family Practice [facility] [address] [place] [address] Jesus Kingston MD [address] [place] [phone] Scheduled Procedures Name Priority Associated Diagnoses Date/Ti me COLONOSCOPY FLEXIBLE PROXIMAL DIAGNOSTIC Recall History of colon polyps ESOPHAGOGASTRODUODENOSCOPY ( EGD), FLEXIBLE, TRANSORAL, DIAGNOSTIC Recall Little esophagus Health Maintenance Due Date Last Done Comments DISCUSS TOBACCO CESSATION (REFER TO SMARTSET #5290) 1959 Diabetic Eye Exam 1977 Diabetic Foot [...] Zoster Vaccines Completed 05/20/2020, 01/27/2020 Pneumococcal Vaccine: 50+ Years Completed 02/02/2022, 05/10/2013 RETIRED - COLONOSCOPY-EVERY 5 YRS AGES 18-100 Discontinued 06/23/2022, 06/23/2022, 01/18/2018, Additional history exists AAA Screening Completed 04/25/2024, 05/0 01/2009, 07/28/2003, Additional history exists Influenza Vaccine [...] Not on filedocumented as of this encounter Care Teams Director Personal Relationship Specialty Start Date End Date Jesus Kingston MD [address] [place] [phone] PCP - General Family Medicine 12/31/20 documented as of this encounter
--- OUTSIDE RECORDS SUMMARY | 2024-12-22 04:02 | External Medical Summary | Summary of Care ---
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 Active Misc Natural Products (GNP [employer] PROSTATE HEALTH) CAPS Take by mouth. Active [...] as of this encounter (statuses as of 10/08/2024) Active Problems Problem Noted Date Diagnosed Date SK (seborrheic keratosis) 05/16/2024 Organic erectile dysfunction 02/06/2023 Generalized osteoarthritis 02/06/2023 Obesity, Class I, BMI 30.0-34.9 (see actual BMI) 02/04/2023 Type 2 diabetes mellitus wit h hemoglobin A1c goal of less than 7.0% 05/10/2021 Dyslipidemia 12/31/2020 Tobacco use disorder 12/31/2020 Coronary artery disease invo lving [place] coronary artery without angina pectoris 10/14/2015 HTN, goal below 130/80 12/26/2012 Little esophagus 09/14/2012 Overview (10/14/2014): Needs endoscopy in 2018 documented as of this encounter (statuses as of 10/08/2024) Resolved Problems Problem Noted Date Diagnosed Date Resolved Date Prediabetes 10/03/2017 05/10/2021 Overview: Per Prediabetes protocol #1 Dyslipidemia, goal LDL below 70 04/11/2014 12/31/2020 CAD (coronary artery disease) 09/14/2012 10/14/2015 PURE HYPERCHOLESTEROLEM 01/26/200103/22 documented as of this encounter (statuses as of 10/08/2024) Immunizations Name Administration Dates Next Due Pneumococcal Conjugate Vacci ne, 20-valent ([id number]) 02/02/2022 Pneumococcal Polysaccharide PPV23 (Pneumovax) 05/10/2013 Seasonal [...] encounter Miscellaneous Notes * Telephone Encounter - Jonh Gallagher [facility] - 10/08/2024 3:42 PM ESTRefused Prescriptions: Disp Refills Omeprazole 20 MG Oral Capsule Delayed Rele*180 Ca*1 Sig: TAKE 1CAPSULE BY MOUTH IN THE MORNING AND 1 CAPSULE BY MOUTH BEFORE BEDTIMERefused By: JONH GALLAGHER for Refusal: Too soon * Telephone Encounter - Jonh Gallagher RP - 10/08/2024 3:42 PM EST Refills for omeprazole were approved to [facility] #[id number] [address] on 07/08/23 (90 days with 1 refill). Refill(s) should remain at the pharmacy. Thanks, Jonh Benjamin, PharmD Clinical Pharmacist [facility] [phone] 12/09/2022 12:43 PM * Telephone Encounter - Vida Friedman TECH - 10/08/2024 2:38 PM EST Pending Prescriptions: Disp Refills Omeprazole 20 MG Oral Capsule Delayed Rele*180 Ca*1 Sig: TAKE 1 CAPSULE BY MOUTH IN THE MORNING AND 1 CAPSULE BY MOUTH BEFORE BEDTIME * Telephone Encounter - Vida Friedman [facility] - 10/08/2024 2:37 PM EST Did you pend patient's preferred pharmacy and medication before forwarding?yes Pharmacy: [facility] #[id number] [address] Pending Prescriptions: Disp Refills Omeprazole 20 MG Oral Capsule Delayed Rel*180 Ca*1 Sig: TAKE 1 CAPSULE BY MOUTH IN THE MORNING AND 1 CAPSULE BY MOUTH BEFORE BEDTIME Last Visit: 05/16/2024 (in office), 01/01/2021 (telemedicine) Next Visit: 02/19/2025 If no future appointments scheduled, and last appointment is greater than a year ago, please schedule patient for a follow-up appointment Last date the medication was ordered: 07/08/24 Is this request for a controlled substance?No Urine Drug Screen:No results found for this or any previous visit. Patient Phone Numbers Labs: Lab Results Component Value Date/Time CREAT 0.8 02/13/2024 09:35 AM CREAT 0.9 05/22/2020 11:26 AM POTASSIUM 4.3 02/13/2024 09:35 AM POTASSIUM 4.5 05/22/2020 11:26 AM LDL 84 02/13/2024 09:35 AM LDL 92 05/22/2020 11:26 AM LDL NOT APPLICABLE 05/22/2020 11:26 AM ALT 29 01/06/2023 03:15 PM ALT 32 05/22/2020 11:26 AM HGBA1C 6.3 (H) 02/13/2024 09:35 AM HGBA1C 6.5 (H) 05/22/2020 11:26 AM documented in this encounter Plan of Treatment Upcoming Encounters Date Type Department Care Team (Late st Contact Info) Description 02/19/2025 8:00 AM EDT Office Visit Family Practice [facility] 132 [facility] [place] [address] Jesus Kingston MD 132 [facility] [place] [address] Scheduled Procedures Name Priority Associated Diagnoses Date/Ti me COLONOSCOPY FLEXIBLE PROXIMAL DIAGNOSTIC Recall History of colon polyps ESOPHAGOGASTRODUODENOSCOPY ( EGD), FLEXIBLE, TRANSORAL, DIAGNOSTIC Recall Little esophagus Health Maintenance Due Date Last Done Comments DISCUSS TOBACCO CESSATION (REFER TO SMARTSET #2445) 1959 Diabetic Eye Exam 1977 Diabetic Foot [...] on patient's age to complete this topic Meningitis B Vaccine (Bexsero/Trumemba) Aged Out No longer eligible based on patient's age to complete this topic documented as of this encounter Medical Devices Not on filedocumented as of this encounter Visit Diagnoses Diagnosis 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
--- OUTSIDE RECORDS SUMMARY | 2024-12-22 04:02 | External Medical Summary | Summary of Care ---
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 Active Misc Natural Products (GNP [employer] [facility]OSTATE [facility]) CAPS Take by mouth. Active Diclofenac Sodium 1 % External Gel (Voltaren) Apply 2 g topically to affected area in the morning and 2 g before bedtime. Apply to elbow. 100 g 3 03/20/20 23 Active Sildenafil Citrate 100 MG Oral Tablet (Viagra) Take 1 Tablet by mouth daily as needed for Erectile Dysfunction. 1-4 hours before intercourse, no more than 1 dose in 24 hours. 10 Tablet 5 02/19/20 24 Active Atorvastatin Calcium 80 MG Oral Tablet (Lipitor) Take 1 Tablet by mouth in the morning. 90 Tablet 1 07/08/20 24 Active Metoprolol Succinate ER 25 MG Oral Tablet Extended Release 24 Hour (toPROL XL) Take 0.5 Tablets by mouth in the morning. 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 180 Capsule 1 07/08/20 24 Active Celecoxib 200 MG Oral Capsule (CeleBREX)Indicati ons:Generalized osteoarthritis Take 1 Capsule by mouth in the morning. For pain. 90 Capsule 1 07/08/20 24 Active Atorvastatin Calcium 80 MG Oral Tablet (Lipitor) Take 1 Tablet by mouth in the morning. 90 Tablet 1 02/19/20 24 024 Discontin ued(Refil l) Metoprolol Succinate ER 25 MG Oral Tablet Extended Release 24 Hour (toPROL XL) Take 0.5 Tablets by mouth in the morning. 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 180 Capsule 1 04/07/20 24 024 Discontin ued(Refil l) Celecoxib 200 MG Oral Capsule (CeleBREX)Indicati ons:Generalized osteoarthritis Take 1 Capsule by mouth in the morning. For pain. 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 Overview (10/14/2014): Needs endoscopy in 2018 documented as of this encounter (statuses as of 07/08/2024) Resolved Problems Problem Noted Date Diagnosed Date Resolved Date Prediabetes 10/03/2017 05/10/2021 Overview: Per Prediabetes protocol #1 Dyslipidemia, goal LDL below 70 04/11/2014 12/31/2020 CAD (coronary artery disease) 09/14/2012 10/14/2015 PURE HYPERCHOLESTEROLEM 01/26/200103/22 documented as of this encounter (statuses as of 07/08/2024) Immunizations Name Administration Dates Next Due Pneumococcal Conjugate Vacci ne, 20-valent ([id number]) 02/02/2022 Pneumococcal Polysaccharide PPV23 (Pneumovax) 05/10/2013 Seasonal [...] encounter Miscellaneous Notes * Telephone Encounter - Татьяна Page MD - 07/08/2024 9:04 PM ESTSigned Prescriptions: Disp Refills Atorvastatin Calcium 80 MG Oral Tablet (Li*90 Tab*1 Sig: Take 1 Tablet by mouth in the morning. Authorizing Provider: ТАТЬЯНА PAGE Ordering User: CHRISTOPHER ALVARADO Metoprolol Succinate ER 25 MG Oral Tablet *45 Tab*1 Sig: Take 0.5 Tablets by mouth in the morning. Authorizing Provider: ТАТЬЯНА PAGE Ordering User: CHRISTOPHER ALVARADO Omeprazole 20 MG Oral Capsule Delayed Rele*180 Ca*1 Sig: Take 1 Capsule by mouth in the morning and 1 Capsule before bedtime. Authorizing Provider: ТАТЬЯНА PAGE Ordering User: CHRISTOPHER ALVARADO Celecoxib 200 MG Oral Capsule (CeleBREX) 90 Cap*1 Sig: Take 1 Capsule by mouth in the morning. For pain. Authorizing Provider: ТАТЬЯНА PAGE * Telephone Encounter - Christopher Alvarado, [facility] - 07/08/2024 4:46 PM ESTPending Prescriptions: Disp Refills Celecoxib 200 MG Oral Capsule (CeleBREX) 90 Cap*1 Sig: Take 1 Capsule by mouth in the morning. For pain. Signed Prescriptions: Disp Refills Atorvastatin Calcium 80 MG Oral Tablet (Li*90 Tab*1 Sig: Take 1 Tablet by mouth in the morning. Authorizing Provider: ТАТЬЯНА PAGE Ordering User: CHRISTOPHER ALVARADO Metoprolol Succinate ER 25 MG Oral Tablet *45 Tab*1 Sig: Take 0.5 Tablets by mouth in the morning. Authorizing Provider: ТАТЬЯНА PAGE Ordering User: CHRISTOPHER ALVARADO Omeprazole 20 MG Oral Capsule Delayed Rele*180 Ca*1 Sig: Take 1 Capsule by mouth in the morning and 1 Capsule before bedtime. Authorizing Provider: ТАТЬЯНА PAGE Ordering User: CHRISTOPHER ALVARADO - * Telephone Encounter - Christopher Alvarado RP - 07/08/2024 4:45 PM EST Unable to authorize medication refills at this time. Part of the criteria used for refill authorization was not satisfied. Patient needs current labs. Please approve if appropriate. Pending Prescriptions: Disp Refills Celecoxib 200 MG Oral Capsule (CeleBREX) 90 Cap*1 Sig: Take 1 Capsule by mouth in the morning. For pain. Signed Prescriptions: Disp Refills Atorvastatin Calcium 80 MG Oral Tablet (Li*90 Tab*1 Sig: Take 1 Tablet by mouth in the morning. Authorizing Provider: ТАТЬЯНА PAGE Ordering User: CHRISTOPHER ALVARADO Metoprolol Succinate ER 25 MG Oral Tablet *45 Tab*1 Sig: Take 0.5 Tablets by mouth in the morning. Authorizing Provider: ТАТЬЯНА PAGE Ordering User: CHRISTOPHER ALVARADO Omeprazole 20 MG Oral Capsule Delayed Rele*180 Ca*1 Sig: Take 1 Capsule by mouth in the morning and 1 Capsule before bedtime. Authorizing Provider: ТАТЬЯНА PAGE Ordering User: CHRISTOPHER ALVARADO Last Visit: 05/16/2024 (in office), 01/01/2021 (telemedicine) Next Visit: 02/19/2025 If no future appointments scheduled, and last appointment is greater than a year ago, please schedule patient for a follow-up appointment Last date the medication was ordered: 04-28-24 Pharmacy: [facility] #[id number] [address] Is this request for a controlled substance? No Urine Drug Screen:No results found for this [...] AM HGBA1C 6.5 (H) 05/22/2020 11:26 AM Christopher Alvarado, Sweetie.Ph. Clinical Pharmacist [facility] [address] [place] [address], [address] [place] [address] [phone] 07/08/2024,4:46 PM documented in this encounter Plan of Treatment Upcoming Encounters Date Type Department Care Team (Late st Contact Info) Description 02/19/2025 8:00 AM EDT Office Visit Family Practice [facility] [address] [place] [address] Татьяна Page MD [address] [place] [address] Scheduled Procedures Name Priority Associated Diagnoses Date/Ti me COLONOSCOPY FLEXIBLE PROXIMAL DIAGNOSTIC Recall History of colon polyps ESOPHAGOGASTRODUODENOSCOPY ( EGD), FLEXIBLE, TRANSORAL, DIAGNOSTIC Recall Little esophagus Health Maintenance Due Date Last Done Comments DISCUSS TOBACCO CESSATION (REFER TO SMARTSET #0556) 1959 Diabetic Eye Exam 1977 Diabetic Foot [...] Diagnosis 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
--- OUTSIDE RECORDS SUMMARY | 2024-12-22 04:02 | External Medical Summary | Summary of Care ---
Author Name Unknown Organization [facility] Address [address] [place] [address] Phone [phone] Care Team Providers Care Combining Machine Operator Name Role Phone Татьяна Page MD Primary Care Provider [phone] Reason for Visit * Reason Comments eRx-Medication Refill Encounter Details Date Type Department Care Team (Late st Contact Info) Description 11/28/2024 Refill Family Practice [facility] 132 [facility] [place] [address] Татьяна Page MD 132 [facility] [place] [address] Allergies No known active allergiesdocumented as of this encounter (statuses as of 11/28/2024) Medications GINSENG 100 MG PO TABS 1 [...] the morning. Active Misc Natural Products (GNP [employer] PROSTATE HEALTH) CAPS Take by mouth. Active Diclofenac Sodium 1 % External Gel (Voltaren) Apply 2 g topically to affected area in the morning and 2 g before bedtime. Apply to elbow. 100 g 3 03/20/20 23 Active Atorvastatin Calcium 80 MG Oral Tablet (Lipitor) Take 1 Tablet by mouth in the morning. 90 Tablet 1 07/08/20 24 Active Metoprolol Succinate ER 25 MG Oral Tablet Extended Release 24 Hour (toPROL XL) Take 0.5 Tablets by mouth in the morning. 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 180 Capsule 1 07/08/20 24 Active Celecoxib 200 MG Oral Capsule (CeleBREX)Indicat ions:Generalized osteoarthritis Take 1 Capsule by mouth in the morning. For pain. 90 Capsule 1 07/08/20 24 Active Sildenafil Citrate 100 MG Oral Tablet TAKE 1 TABLET BY MOUTH DAILY 1 TO 4 HOURS BEFORE SEXUAL ACTIVITY NEEDED FOR ERECTILE DYSFUNCTION. NO MORE THAN 1 DOSE IN 24 HOURS 10 Tablet 5 11/29/19 25 Active Sildenafil Citrate 100 MG Oral Tablet (Viagra) Take 1 Tablet by mouth daily as needed for Erectile Dysfunction. 1-4 hours before intercourse, no more than 1 dose in 24 hours. 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 Overview (10/14/2014): Needs endoscopy in 2018 documented as of this encounter (statuses as of 11/28/2024) Resolved Problems Problem Noted Date Diagnosed Date Resolved Date Prediabetes 10/03/2017 05/10/2021 Overview: Per Prediabetes protocol #1 Dyslipidemia, goal LDL below 70 04/11/2014 12/31/2020 CAD (coronary artery disease) 09/14/2012 10/14/2015 PURE HYPERCHOLESTEROLEM 01/26/200103/22 documented as of this encounter (statuses as of 11/28/2024) Immunizations Name Administration Dates Next Due Pneumococcal Conjugate Vacci ne, 20-valent ([id number]) 02/02/2022 Pneumococcal Polysaccharide PPV23 (Pneumovax) 05/10/2013 Seasonal [...] encounter Miscellaneous Notes * Telephone Encounter - Francia Amaya [facility] - 11/28/2024 12:56 PM EDTSigned Prescriptions: Disp Refills Sildenafil Citrate 100 MG Oral Tablet 10 Tab*5 Sig: TAKE 1 TABLET BY MOUTH DAILY 1 TO 4 HOURS BEFORE SEXUAL ACTIVITY NEEDED FOR ERECTILE DYSFUNCTION. NO MORE THAN 1 DOSE IN 24 HOURSAuthorizing Provider: ТАТЬЯНА PAGEOrdering User: FRANCIA AMAYA---- documented in this encounter Plan of Treatment Upcoming Encounters Date Type Department Care Team (Late st Contact Info) Description 02/19/2025 8:00 AM EDT Office Visit [facility] [address] [place] [address] Татьяна Page MD [address] [place] [address] Scheduled Procedures Name Priority Associated Diagnoses Date/Ti me COLONOSCOPY FLEXIBLE PROXIMAL DIAGNOSTIC Recall History of colon polyps ESOPHAGOGASTRODUODENOSCOPY ( EGD), FLEXIBLE, TRANSORAL, DIAGNOSTIC Recall Little esophagus Health Maintenance Due Date Last Done Comments DISCUSS TOBACCO CESSATION (REFER TO SMARTSET #0324) 1959 Depression Screening 1971 Diabetic Eye Exam 1977 Diabetic Foot Exam 1977 Cologuard 2004 Fecal Occult Blood Test 2004 Sigmoidoscopy 2004 DTap/Tdap Vaccines (2 - Td or Tdap) 07/05/2022 07/05/2012 HbA1c 08/14/2024 02/13/2024, 12/19, 01/31/2022, Additional history exists Albumin/Creatinine Ratio 02/12/20252 024, 01/31/2022, 04/11/2014 GFR 02/12/2025 02/13/2024, 12/19, [...] filedocumented as of this encounter Care Teams Combining Machine Operator Relationship Specialty Start Date End Date Татьяна Page MD [address] [place] [address] PCP - General Family Medicine 12/31/20 documented as of this encounter
--- OUTSIDE RECORDS SUMMARY | 2024-12-22 04:02 | External Medical Summary | Summary of Care ---
Author Name Unknown Organization [facility] Address [address] [facility] [address] Phone [phone] Care Team Providers Care Switchboard Wire Worker Helper Name Role Phone Jesus Kingston MD Primary Care Provider [phone] Encounter Details Date Type Department Care Team (Late st Contact Info) Description 04/24/2024 Telephone Radiology [address] [place] [address] Jesus Kingston MD [address] [place] [address] Allergies No known active allergiesdocumented as of this encounter (statuses as of 07/24/2024) Medications GINSENG 100 MG PO TABS 1 tablet twice daily Active CITRACAL PETITES/VITAMIN D 200-250 MG-UNIT PO TABS 1 tablet twice daily Active DEO MULTIVITAMIN FOR MEN PO TABS 1 tablet twice daily Active ASPIRIN 81 MG PO TABS 1 tablet daily Activ e CENTRUM SILVER ADULT 50+ PO TABS 1 daily Ac tive Ascorbic Acid (VITAMIN C) 1000 MG Tablet Take 1 Tablet by mouth in the morning. Active Misc Natural Products (GNP [employer]ENS PROSTATE HEALTH) CAPS Take by mouth. Ac tive Diclofenac Sodium 1 % External Gel (Voltaren) [...] 24 hours. 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 Overview (10/14/2014): Needs endoscopy in 2018 documented as of this encounter (statuses as of 07/24/2024) Resolved Problems Problem Noted Date Diagnosed Date Resolved Date Prediabetes 10/03/2017 05/10/2021 Overview: Per Prediabetes protocol #1 Dyslipidemia, goal LDL below 70 04/11/2014 12/31/2020 CAD (coronary artery disease) 09/14/2012 10/14/2015 PURE HYPERCHOLESTEROLEM 01/26/200103/22 documented as of this encounter (statuses as of 07/24/2024) Immunizations Name Administration Dates Next Due Pneumococcal Conjugate Vacci ne, 20-valent ([id number]) 02/02/2022 Pneumococcal Polysaccharide PPV23 (Pneumovax) 05/10/2013 Seasonal Influenza Vac., MDV , IM, 0.5 mL (Fluzone) 05/02/2014,05/10/2013,07/05/2012 Seasonal Influenza, PF, 6 M & above, [...] on file documented as of this encounter Plan of Treatment Upcoming Encounters Date Type Department Care Team (Late st Contact Info) Description 02/19/2025 8:00 AM EDT Office Visit Family Practice [facility] [address] [place] [address] Jesus Kingston MD [address] [place] [address] Scheduled Procedures Name Priority Associated Diagnoses Date/Ti me COLONOSCOPY FLEXIBLE PROXIMAL DIAGNOSTIC Recall History of colon polyps ESOPHAGOGASTRODUODENOSCOPY ( EGD), FLEXIBLE, TRANSORAL, DIAGNOSTIC Recall Little esophagus Health Maintenance Due Date Last Done Comments DISCUSS TOBACCO CESSATION (REFER TO SMARTSET #2221) 1959 Diabetic Eye Exam 1977 Diabetic Foot [...] filedocumented as of this encounter Care Teams Switchboard Wire Worker Helper Relationship Specialty Start Date End Date Jesus Kingston MD [address] [place] [address] PCP - General Family Medicine 12/31/20 documented as of this encounter
--- OUTSIDE RECORDS SUMMARY | 2024-12-22 04:02 | External Medical Summary | Summary of Care ---
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 Active Misc Natural Products ([facility]) CAPS Take by mouth. 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 Overview (10/14/2014): Needs endoscopy in 2018 documented as of this encounter (statuses as of 10/02/2024) Resolved Problems Problem Noted Date Diagnosed Date Resolved Date Prediabetes 10/03/2017 05/10/2021 Overview: Per Prediabetes protocol #1 Dyslipidemia, goal LDL below 70 04/11/2014 12/31/2020 CAD (coronary artery disease) 09/14/2012 10/14/2015 PURE HYPERCHOLESTEROLEM 01/26/200103/22 documented as of this encounter (statuses as of 10/02/2024) Immunizations Name Administration Dates Next Due Pneumococcal Conjugate Vacci ne, 20-valent ([id number]) 02/02/2022 Pneumococcal Polysaccharide PPV23 (Pneumovax) 05/10/2013 Seasonal [...] encounter Miscellaneous Notes * Telephone Encounter - Deanna Patton OSA - 10/01/2024 3:31 PM EST Pt would like records sent to [facility] [employer] for continued of care Thank you Forward to [facility] documented in this encounter Plan of Treatment Upcoming Encounters Date Type Department Care Team (Late st Contact Info) Description 02/19/2025 8:00 AM EDT Office Visit Family Practice [facility] [address] [place] [id number] Jesus Kingston MD [address] [place] [id number] Scheduled Procedures Name Priority Associated Diagnoses Date/Ti me COLONOSCOPY FLEXIBLE PROXIMAL DIAGNOSTIC Recall History of colon polyps ESOPHAGOGASTRODUODENOSCOPY ( EGD), FLEXIBLE, TRANSORAL, DIAGNOSTIC Recall Little esophagus Health Maintenance Due Date Last Done Comments DISCUSS TOBACCO CESSATION (REFER TO SMARTSET #2681) 1959 Diabetic Eye Exam 1977 Diabetic Foot [...] filedocumented as of this encounter Care Teams Latex Ribbon Machine Operator Relationship Specialty Start Date End Date Jesus Kingston MD [address] [place] [address] PCP - General Family Medicine 12/31/20 documented as of this encounter
[2024-12-22] MEDS ORDERED: GLUCAGON FOR INJ 1 MG VIAL SQ PRN (04:09)
[2024-12-22] MEDS ORDERED: GLUCOSE 40% GEL 15 GM TUBE PO PRN (04:09)
[2024-12-22] MEDS ORDERED: CARBOHYDRATES FOR HYPOGLYCEMIA PO PRN (04:09)
[2024-12-22] MEDS ORDERED: DEXTROSE 50% 50 ML SYRINGE IV PRN (04:09)
[2024-12-22] MEDS ORDERED: GLUCOSE 10 TAB/TUBE PO PRN (04:09)
[2024-12-22] MEDS: DOXYCYCLINE HYCLATE 100 MG in DEXTROSE 5% MINI-B 100 ML IV STA (04:18)
[2024-12-22] MEDS: INSULIN ASPART PER UNIT CHARGE SC SCH (05:12)
[2024-12-22] MEDS: cefTRIAXone SODIUM 2,000 MG/50 ML BAG IV SCH (08:16)
[2024-12-22] MEDS: ASCORBIC ACID 500 MG TAB PO SCH (08:16)
[2024-12-22] MEDS: DICLOFENAC SOD 1% GEL 100 GM TUBE EXT SCH (08:17)
[2024-12-22] MEDS: PANTOprazole 40 MG TAB PO SCH (08:17)
[2024-12-22] MEDS: ENOXAPARIN INJ 40 MG/0.4 ML SYR SQ SCH (08:17)
[2024-12-22] MEDS: ATORVASTATIN 40 MG TAB PO SCH (08:17)
[2024-12-22 08:51] LABS: Estimated Average Glucose 128 mg/dl; Hemoglobin A1C 6.1 % (4.5-5.6)
--- NOTE | 2024-12-22 09:45 | Electrocardiogram Report ---
Test Reason : Blood Pressure : */* mmHG Vent. Rate : 94 BPM Atrial Rate : 94 BPM P-R Int : 144 ms QRS Dur : 92 ms QT Int : 378 ms P-R-T Axes : 73 85 69 degrees QTcB Int : 472 ms Normal sinus rhythm RSR' or QR pattern in V1 suggests right ventricular conduction delay Borderline ECG No previous ECGs available Confirmed by Parvin Richmond (Elizabeth) on 12/22/2024 9:45:00 AM Referred By: REFERRED SELF Confirmed By: Parvin Richmond
[2024-12-22] MEDS ORDERED: HYDROcodone/HOMATROPINE SYRUP 5MG/1.5MG 5ML UDP PO PRN (12:34)
--- NOTE | 2024-12-22 12:42 | Hospitalist Progress Note ---
Date of Service December 22, 2024 Assessment & Plan (1) Severe sepsis: (2) Atypical pneumonia: (3) Acute hypoxic respiratory failure: (4) Prediabetes: (5) Hypertension: (6) Nicotine dependence: Plan Patient with sepsis and acute hypoxic respiratory failure due to atypical pneumonia Continue antibiotics Schedule nebulizer treatments Schedule antitussives and mucolytics Okay to MedSurg Nicotine replacement at bedside Admission and Anticipated Discharge Date Admission Date: December 22, 2024 Subjective Patient states his breathing feels a little bit better. But still spasms of cough Physical Exam Physical Exam: Constitutional: Alert, nontoxic HEENT: Mucous membranes moist. Lungs: Decreased breath sounds, poor airflow, fine crackles throughout CV: S1-S2, regular Abdomen: Soft, nontender, nondistended Extremities: No significant edema Neuro: No focal deficits Psych: Cooperative, normal mood Results & Data Results & Data Vital Signs (Past 12 Hours) Vital Signs Temp Pulse Pulse Resp BP BP Pulse Ox 12/22/24 12:20 12/22/24 12:20 36.9 C 72 24 114/66 92 12/22/24 12:20 12/22/24 10:00 69 20 111/64 95 12/22/24 09:30 67 18 116/69 95 12/22/24 09:15 67 12/22/24 09:00 117/65 94 12/22/24 08:30 73 23 116/65 93 12/22/24 07:30 73 18 105/71 95 12/22/24 06:30 65 18 121/69 95 12/22/24 05:19 12/22/24 05:19 36.6 C 66 17 114/67 97 12/22/24 05:12 36.6 C 66 17 114/67 97 12/22/24 05:12 12/22/24 03:30 66 21 125/64 95 12/22/24 03:16 69 12/22/24 03:10 73 20 119/67 96 12/22/24 03:04 72 20 119/67 95 12/22/24 02:30 72 20 112/64 96 12/22/24 02:00 72 20 112/65 94 Pulse Ox O2 Del Method O2 Del Method O2 Flow Rate O2 Flow Rate 12/22/24 12:20 Nasal Cannula 2 12/22/24 12:20 Nasal Cannula 2 12/22/24 12:20 92 Nasal Cannula 2 12/22/24 10:00 Nasal Cannula 2 12/22/24 09:30 Nasal Cannula 2 12/22/24 09:15 12/22/24 09:00 Nasal Cannula 2 12/22/24 08:30 Nasal Cannula 2 12/22/24 07:30 Nasal Cannula 2 12/22/24 06:30 Nasal Cannula 2 12/22/24 05:19 Nasal Cannula 2 12/22/24 05:19 Nasal Cannula 2 12/22/24 05:12 Nasal Cannula 2 12/22/24 05:12 97 Room Air 2 12/22/24 03:30 Nasal Cannula 2 12/22/24 03:16 12/22/24 03:10 Nasal Cannula 2 12/22/24 03:04 Nasal Cannula 2 12/22/24 02:30 Nasal Cannula 2 12/22/24 02:00 Nasal Cannula 2 Diagnostic Findings Reviewed imaging, laboratory and diagnostic studies. Pertinent findings as below.
[2024-12-22] MEDS: ALBUT/IPRATROP 3MG/0.5MG NEB 3 ML VIAL NEB SCH ×2 (13:18→19:55)
[2024-12-22] MEDS: NICOTINE 14 MG/24 HR PATCH TD SCH (18:05)
[2024-12-22] MEDS: DOXYCYCLINE HYCLATE 100 MG CAP PO SCH (20:32)
[2024-12-22] MEDS: guaiFENesin 600 MG TABCR PO SCH (20:32)
[2024-12-22] MEDS ORDERED: guaiFENesin 600 MG TABCR PO SCH (21:00)
[2024-12-23 06:34] LABS: Hematocrit (blood only) 41.9 % (42.0-52.0); Hemoglobin 14.6 g/dl (14.0-18.0); Mean Corpuscular Hemoglobin 31.9 pg (25.0-34.0); Mean Corpuscular Hgb Conc 34.8 g/dL (32.0-36.0); Mean Corpuscular Volume 91.7 fL (80.0-100.0); Mean Platelet Volume 9.2 fL (9.4-12.4); Platelet Count 175 K/uL (130-400); RDW Coefficient of Variation 13.2 % (11.5-14.5); RDW Standard Deviation 44.5 fL (36.4-46.3); Red Blood Count 4.57 M/uL (4.70-6.10); White Blood Count 9.22 K/ul (4.8-10.8)
[2024-12-23 06:51] LABS: BUN Creatinine Ratio 19.8 (10-20); Calcium 8.8 mg/dl (8.6-10.3); Creatinine Clr Calc Pharmacy 109.5 ml/min; Potassium 4.1 mmol/L (3.5-5.1)
[2024-12-23 07:26] VITALS: RESP 16
[2024-12-23 07:59] VITALS: BP 127/73; PULSE 67; TEMP 98.2
--- NOTE | 2024-12-23 10:03 | Discharge Summary ---
Discharge Summary Date of Service December 23, 2024 Principal Dx & Hospital Course #1 = Principal Diagnosis (1) Severe sepsis: (2) Atypical pneumonia: (3) Acute hypoxic respiratory failure: (4) Prediabetes: (5) Hypertension: (6) Nicotine dependence: Plan Patient is a 64-year-old gentleman who presented to the emergency room with acute hypoxic respiratory failure and imaging consistent with an atypical pneumonia. Patient was supported with oxygen. Started on IV antibiotics and supported with oxygen. With these interventions the patient rapidly improved. He was titrated off oxygen. He was given antitussives and mucolytics. On the day of discharge he was up and ambulating the halls without any dyspnea, shortness of breath or hypoxia. His cough was significantly improved with these interventions. He can been transition to oral medications and discharged home to follow-up with his outpatient providers. Notes For Next Care Provider Patient with prediabetes, continue to monitor for progression and potential need for more aggressive treatment Medication Changes From Visit Doxycycline and Omnicef for atypical pneumonia Guaifenesin and Tessalon Perles for cough Admission HPI Per Admitting Provider History obtained from patient, family, and records. Medical history significant for nonocclusive CAD, hypertension, hyperlipidemia, Little's esophagus, DM2 diet-controlled, ongoing tobacco abuse. Few days history of progressive SOB worse on exertion associated with dry cough symptoms. Not sure about sick contacts. Outpatient doctor/dentist appointments. Denies aspiration. Denies chest pain, leg swelling or fluid retention. EMS called the patient's home. Neb treatment given en route to ER. Lowest O2 sats of 80s documented at the ER. Cefepime administered at the ER. Medical History as above Surgical History : None Family History : Heart disease Personal/Social history : 1 pack daily, occasional EtOH intake, retired Admission Exam Per Admitting Provider See H&P Discharge Exam Constitutional: Alert, nontoxic HEENT: Mucous membranes moist. Lungs: Decreased breath sounds, few rhonchi that clear with cough, no wheezing CV: S1-S2, regular Abdomen: Soft, nontender, nondistended Extremities: No significant edema Neuro: No focal deficits Psych: Cooperative, normal mood Updated Medication List Medication Instructions Recorded Confirmed Type Calcium Citrate + D 200 - 250 mg PO BID 12/22/24 12/22/24 History Prostate Health 1 cap PO DAILY 12/22/24 12/22/24 History Vitamin C 1,000 mg PO DAILY 12/22/24 12/22/24 History Voltaren 2 g topical BID 12/22/24 12/22/24 History aspirin 81 mg PO DAILY 12/22/24 12/22/24 History atorvastatin 80 mg tablet 80 mg DAILY 12/22/24 12/22/24 History celecoxib 200 mg capsule 200 mg PO DAILY 12/22/24 12/22/24 History ginseng 100 mg PO BID 12/22/24 12/22/24 History metoprolol succinate 25 mg 12.5 mg PO DAILY 12/22/24 12/22/24 History tablet,extended release 24 hr omeprazole 20 mg PO BID 12/22/24 12/22/24 History sildenafil 100 mg PO NOW 12/22/24 12/22/24 History benzonatate 100 mg capsule 200 mg (2 x 100 mg) PO TID PRN 12/23/24 Rx cough #30 caps cefdinir 300 mg capsule 300 mg PO BID 4 days #8 caps 12/23/24 Rx doxycycline hyclate 100 mg capsule 100 mg PO BID 4 days #8 caps 12/23/24 Rx guaifenesin 600 mg tablet, 1,200 mg (2 x 600 mg) PO Q12 #30 12/23/24 Rx extended release 12 hr (Mucinex) tabs nicotine 7 mg/24 hr daily 1 patch transdermal QAM #14 ea 12/23/24 Rx transdermal patch Hospital Stay Data Consultations 12/22/24 02:00 ED Decision to Admit Stat Diagnostic Imagining Performed 12/22/24 00:28 CT angio chest PE protocol Stat Reviewed imaging, laboratory and diagnostic studies. Pertinent findings as below. WBCs 9.2 Hemoglobin 14.6 Electrolytes stable Creatinine 0.81 Hemoglobin A1c 6.1% Respiratory viral panel negative Blood cultures no growth to date Pending Results Patient Have Any Pending Studies at Discharge: No Discharge Instructions Given to Patient (Per Discharging Provider) Blood testing indicates that you do have prediabetes. Continue to monitor your glucose and recommend diabetic diet. Complete course of antibiotics Strongly recommend you stop all smoking and tobacco products Total Time Total Time Spent Total Time Spent (In Minutes): 26 By CMS guidelines, a determination that the admission or continued stay is not medically necessary has been made by a member of the UR committee and a physician for this hospital stay, therefore a Code 44 will be completed and the Inpatient admission will be changed to outpatient.
--- NOTE | 2024-12-23 10:09 | Communication Note ---
Date of Service: December 23, 2024 By CMS guidelines, a determination that the admission or continued stay is not medically necessary has been made by a member of the UR committee and a physic edie for this hospital stay, therefore a Code 44 will be completed and the Inpatient admission will be changed to outpatient. Abdiaziz Mcgee MD
[2024-12-23 10:38] VITALS: O2SAT 95
== END 2024-12-23 11:20 | disposition home or self-care (01) | DRG 871 ==
LOC: ED 22:59 → EDINP 12-22 02:22 → 2N 12-22 04:09 → 3E 12-22 19:37